=== PATIENT | female | born 1995 | race Caucasian/White ===

== ENCOUNTER 2017-09-22 15:04 | Emergency (ER) | payer OTHER ==
[~2017-09-22] VITALS: Ht 157.4 cm; Wt 74.8 kg
[2017-09-22] MEDS ORDERED: TOBREX OPHTH O3.5 GM T (15:33)
== END 2017-09-22 15:45 | disposition home or self-care (01) ==
LOC: ED 15:04
DX: H10.31 Unspecified acute conjunctivitis, right eye (principal); F10.10 Alcohol abuse, uncomplicated

== ENCOUNTER 2018-08-03 06:19 | Emergency (ER) | payer OTHER ==
[~2018-08-03] VITALS: Ht 160 cm; Wt 70.3 kg
[~2018-08-03 06:19] MED LIST: TOBREX OPHTH O3.5 GM T
[2018-08-03 06:38] LABS: BILIRUBIN 2+ (NEGATIVE); BLOOD 3+ (NEGATIVE); CLARITY CLOUDY (CLEAR); COLOR ORANGE (YELLOW); GLUCOSE 1+ (NEGATIVE); KETONE TRACE (NEGATIVE); NITRITE POSITIVE (NEGATIVE); PH 7.5 (5.0-9.0); UROBILINOGEN >= 8.0 E.U./dl (0.2-1.0)
[2018-08-03 07:02] LABS: LEUKO ESTERASE 2+ (NEGATIVE); RBC TNTC rbc/hpf (0-2); WBC 21-30 wbc/hpf (0-5)
[2018-08-03] MEDS ORDERED: CIPRO500 MG PO (07:13)
[2018-08-03] MEDS ORDERED: Motrin,Rufen800 MG PO (07:13)
== END 2018-08-03 07:16 | disposition home or self-care (01) ==
LOC: ED 06:19
PROVIDERS: Student in an Organized Health Care Education/Training Program
DX: N39.0 Urinary tract infection, site not specified (principal)